=== PATIENT | male | born 1940 | race Caucasian/White ===

== ENCOUNTER 2022-04-14 09:01 | Emergency (ER) | payer MEDICARE, SELFPAY ==
--- NOTE | 2022-04-14 09:03 | ED.EAR ---
HPI - Ear Problem General Chief complaint: Ear Stated complaint: R EARACHE Time Seen by Provider: 04/14/22 09:12 Source: patient and RN notes reviewed Mode of arrival: ambulatory Limitations: no limitations History of Present Illness HPI Narrative: 81-year-old male presents concern for right ear pain and earwax impaction in the left ear. He reports he was cleaning out the wax from the right ear and after that had pain. He reports wax buildup in the left ear and he is having hearing aids fitted and he cannot have wax in the ear. He reports he tried to remove the wax from the left without success. He reports the pain to the left ear hurts worse when he pulls on the ear. He denies fever, body aches, chills, sweats. Denies drainage from the ear. He denies upper respiratory symptoms. MD Complaint: ear pain Related Data Home Medications Medication Instructions Recorded Confirmed multivitamin 1 tablet PO DAILY 08/20/19 04/14/22 Allergies Allergy/AdvReac Type Severity Reaction Status Date / Time No Known Allergies Allergy Verified 04/14/22 09:17 Review of Systems Review of Systems: CONSTITUTIONAL: Denies malaise, chills, sweats, or fever. EYES: Denies visual changes, redness, or discharge. ENT: Denies rhinorrhea, congestion, sinus pain, and sore throat. Reports right ear pain, left ear wax impaction CARDIOVASCULAR: Denies chest pain, palpitations, or edema. RESPIRATORY: Denies cough. Denies dyspnea. GASTROINTESTINAL: Denies abdominal pain, nausea, vomiting, diarrhea SKIN: Denies rash or itching. MUSCULOSKELETAL: Denies myalgia. NEUROLOGIC: Denies headache. All systems reviewed & are unremarkable except as noted in HPI and below [facility] Past Medical History Medical History Aortic stenosis Elevated LDH Family History Family History Sibling Diabetes mellitus Family history of primary malignant neoplasm of liver Social History Social History (Updated 02/27/22 @ 13:25 by Sherly Btets MA) Smoking status: Former smoker Second hand tobacco smoke exposure: No Alcohol intake: current Drinks per week: 6 Substance use: never Substance use type: does not use Comments At time of signature, agree with nursing past medical, surgical, social and family history. There is no relevant family history pertinent to the presenting complaint Exam Narrative: GENERAL: Well-appearing, well-nourished, and in no acute distress. HEAD: Normocephalic EYES: PERRLA, conjunctivae clear ENT: Nares clear. Mucous membranes moist. Right TM pearly kruger with dull light reflex, EAC excoriation noted with tragal tenderness Left TM not visible due to cerumen impaction, no lefttragal tenderness. Oropharynx not erythematous without lesions. Tonsils not enlarged and without exudate, no drooling, no hoarseness, no trismus, uvula midline. NECK: Supple. No lymphadenopathy CHEST: Clear to auscultation, breath sounds equal. No wheezing, rhonchi, rales, or stridor. No respiratory distress, speaks in full sentences. HEART: Regular rate and rhythm. No murmur heard. SKIN: Warm, dry, no rash. NEURO: Alert and oriented x3. PSYCH: Normal mood and affect Course Course Emergency Course: Patient is aware of diagnosis, understands and agrees to treatment plan. Anticipatory guidance given. Patient agrees to follow-up as directed and is aware of reasons to seek care at the emergency department. Portions of this record may have been created with voice recognition software Level of Care: Express Care Visit Vital Signs Vital signs: Reviewed. Procedures Ear Wax Removal Left Ear: Ear Wax Removal Date: 04/14/22 Ear Wax Removal Time: 09:35 Cerumenolytic Used: other (Hydrogen peroxide) Results: Re-examined: cerumen removed completely TM Examination: TM(s) intact, normal appearance Ear Canal Ex
[2022-04-14 09:11] VITALS: BP 160/84; PULSE 81; RESP 16; TEMP 36.8; O2SAT 99
== END 2022-04-14 10:40 | disposition home or self-care (01) ==
PROVIDERS: Emergency Provider Nurse Practitioner; PCP Emergency Medicine
DX: H60.503 Unspecified acute noninfective otitis externa, bilateral (principal); H61.22 Impacted cerumen, left ear; Z87.891 Personal history of nicotine dependence; I35.0 Nonrheumatic aortic (valve) stenosis
CPT/HCPCS: 69210; 99213; A9270; G0463

== ENCOUNTER 2024-06-30 13:25 | Outpatient (CLI) | payer MEDICARE, SELFPAY ==
[2024-06-30 19:37] LABS: Basophils Absolute Auto 0.1 K/mm3 (0.0-0.1); Basophils Percent Auto 0.8 % (0.2-1.2); Eosinophils Absolute Auto 0.2 K/mm3 (0-0.3); Hematocrit 44.1 % (42.0-52.0); Hemoglobin 14.4 g/dL (14.0-18.0); Immature Granulocyte Absolute 0.02 K/mm3 (0.00-0.031); Immature Granulocyte Percent A 0.2 % (0-0.5); Lymphocytes Absolute Auto 1.42 K/mm3 (0.9-3.2); Lymphocytes Percent Auto 16.5 % (18.3-44.2); Mean Corpuscular HGB Conc 32.7 g/dl (32-36); Mean Corpuscular Hemoglobin 32.6 pg (26-34); Mean Corpuscular Volume 99.8 fl (80-100); Mean Platelet Volume 9.5 fl (7.4-10.4); Monocytes Absolute Auto 0.8 K/mm3 (0.1-0.6); Monocytes Percent Auto 9.5 % (2.6-8.5); Neutrophils Absolute Auto 6.1 K/mm3 (1.3-6.7); Platelet Count Result 272 k/mm3 (150-375); Red Blood Count 4.42 M/mm3 (4.6-6.20); Red Cell Distribution Width 12.8 % (11.5-14.5); White Blood Count 8.6 K/mm3 (4.5-10.0)
== END 2024-06-30 13:26 | disposition home or self-care (01) ==
LOC: ANHGOSHLAB 13:27
PROVIDERS: PCP Internal Medicine; Visit Provider Internal Medicine
DX: R73.03 Prediabetes (principal); Z13.29 Encounter for screening for other suspected endocrine disorder; Z13.0 Encounter for screening for diseases of the blood and blood-forming organs and certain disorders involving the immune mechanism; Z13.228 Encounter for screening for other metabolic disorders
CPT/HCPCS: 36415; 85025